=== PATIENT | female | born 1985 | race Caucasian/White ===

== ENCOUNTER 2017-07-08 08:51 | Day surgery (SDC) | payer BC ==
[~2017-07-08] VITALS: Ht 165.1 cm; Wt 71.4 kg
[~2017-07-08 08:51] MED LIST: ENDOCET 5-3251 EACH PO; IBUPROFEN800 MG PO; PRENATAL TABLE1 EAC3 PO
[2017-07-08 10:05] LABS: HEMATOCRIT 34.4 % (36.0-46.0); MCH 32.5 PG (29.0-34.0); MCHC 34.6 G/DL (30.0-36.0); MEAN PLAT.VOLUME 10.2 uM^3 (9.5-12.4); PLATELET COUNT 152 K/uL (156-360); RBC DIS.WIDTH-CV 12.7 % (11.8-14.6); RED BLOOD COUNT 3.66 M/uL (3.80-5.20); WHITE BLOOD COUNT 8.7 K/uL (4.1-10.2)
[2017-07-08 10:16] LABS: CHLORIDE 108 mEq/L (99-109); POTASSIUM 3.7 mEq/L (3.7-5.4); SODIUM 137 mEq/L (136-147)
[2017-07-08 10:18] LABS: GLUCOSE 80 mg/dL (70-99)
[2017-07-08 10:19] LABS: ANION GAP 8 MEQ/L (2-14)
[2017-07-08 10:20] LABS: TOTAL BILIRUBIN 1.4 mg/dL (0.0-1.0)
[2017-07-08 10:22] LABS: ALKALINE PHOSPHATASE 35 IU/L (3-129); GFR ESTIMATE (CALCULATED) > 59 mL/min/
[2017-07-08 10:23] LABS: UREA NITROGEN (BUN) 5 mg/dL (9-23)
[2017-07-08 10:54] LABS: ADD MIUA? NO; BILIRUBIN NEGATIVE; BLOOD NEGATIVE; COLOR YELLOW ((YELLOW)); GLUCOSE (STRIP) NEGATIVE; KETONES 5; LEUKOCYTES NEGATIVE; NITRITE NEGATIVE; PROTEIN (STRIP) NEGATIVE; SPECIFIC GRAVITY 1.008 (1.000-1.030); UCUL ADDED? NO; UROBILINOGEN 0.2 MG/DL (0.2-1.0)
[2017-07-08] MEDS ORDERED: PROBIOTIC1 EAC1 PO (12:20)
[2017-07-08] MEDS ORDERED: TYLENOL EXTRA500 MG PO (12:20)
[2017-07-08 18:15] VITALS: BP 99/57
[2017-07-08 20:30] VITALS: BP 101/68
[2017-07-08 23:17] VITALS: BP 98/52
[2017-07-09 03:06] VITALS: BP 91/51
[2017-07-09 07:00] VITALS: BP 101/57
== END 2017-07-09 09:59 | disposition home or self-care (01) ==
LOC: EME 08:51 → SDC 15:13 → EME 15:13 → ENRESERV 16:24 → 2SOUTH 16:26 → ENRESERV 16:30 → 2EAST 18:06
PROVIDERS: Nurse Practitioner Family
PROC: 0DTJ4ZZ Resection of Appendix, Percutaneous Endoscopic Approach (ICD-10-PCS; principal; 2017-07-08)
DX: O99.612 Diseases of the digestive system complicating pregnancy, second trimester (principal); K35.80 Unspecified acute appendicitis; Z3A.14 14 weeks gestation of pregnancy
CPT/HCPCS: 76705; 80053; 81003; 85027; G0378; J0131; J0330; J1100; J1170; J1650; J2270; J2405; J2543; J2765; J3010; J7030; J7050; J7120

== ENCOUNTER 2017-12-29 05:05 | Inpatient (IN) | payer BC ==
[2017-12-29] VITALS (7 sets, daily range): BP systolic 89–140; BP diastolic 52–97
[~2017-12-29] VITALS: Ht 167.6 cm; Wt 83.0 kg
[~2017-12-29 05:05] MED LIST changes: +PROBIOTIC1 EAC1 PO; +TUMS500 MG PO; +TYLENOL EXTRA500 MG PO
[2017-12-29 05:55] LABS: BASOPHIL (%) 0.4 % (0-1); EOSINOPHIL (%) 1.4 % (0-5); EOSINOPHIL COUNT 0.1 K/uL (0-0.3); HEMATOCRIT 35.2 % (36.0-46.0); HEMOGLOBIN 11.9 G/DL (11.9-15.5); IMMATURE GRANULOCYTE (%) 0.4 % (0.0-0.7); LYMPHOCYTE (%) 25.3 % (15-42); LYMPHOCYTE COUNT 2.1 K/uL (1.0-2.8); MCH 32.3 PG (29.0-34.0); MCHC 33.8 G/DL (30.0-36.0); MCV 95.7 FL (83-99); MONOCYTE (%) 10.1 % (3-12); MONOCYTE COUNT 0.8 K/uL (0-0.8); NEUTROPHIL (%) 62.4 % (45-76); NEUTROPHIL COUNT 5.2 K/uL (1.8-6.4); PLATELET COUNT 195 K/uL (156-360); RBC DIS.WIDTH-CV 13.1 % (11.8-14.6); RBC DIS.WIDTH-SD 45.8 % (39-53); RED BLOOD COUNT 3.68 M/uL (3.80-5.20); WHITE BLOOD COUNT 8.3 K/uL (4.1-10.2)
[2017-12-30 02:57] VITALS: BP 104/57
[2017-12-30 07:15] LABS: BASOPHIL (%) 0.1 % (0-1); EOSINOPHIL (%) 0.6 % (0-5); EOSINOPHIL COUNT 0.1 K/uL (0-0.3); HEMATOCRIT 25.4 % (36.0-46.0); IMMATURE GRANULOCYTE (%) 0.4 % (0.0-0.7); LYMPHOCYTE (%) 22.9 % (15-42); LYMPHOCYTE COUNT 2.2 K/uL (1.0-2.8); MCH 33.2 PG (29.0-34.0); MCHC 33.9 G/DL (30.0-36.0); MCV 98.1 FL (83-99); MONOCYTE (%) 9.4 % (3-12); MONOCYTE COUNT 0.9 K/uL (0-0.8); NEUTROPHIL (%) 66.6 % (45-76); NEUTROPHIL COUNT 6.5 K/uL (1.8-6.4); PLATELET COUNT 153 K/uL (156-360); RBC DIS.WIDTH-CV 13.2 % (11.8-14.6); RBC DIS.WIDTH-SD 47.2 % (39-53); WHITE BLOOD COUNT 9.7 K/uL (4.1-10.2)
[2017-12-30 07:25] LABS: HEMOGLOBIN 8.6 G/DL (11.9-15.5); RED BLOOD COUNT 2.59 M/uL (3.80-5.20)
[2017-12-30 07:37] VITALS: BP 101/57
[2017-12-30 15:33] VITALS: BP 105/60
[2017-12-30 19:00] VITALS: BP 106/64
[2017-12-30 23:00] VITALS: BP 96/51
[2017-12-31 03:09] VITALS: BP 91/52
[2017-12-31] MEDS ORDERED: ENDOCET 5-3251 EACH PO (10:51)
[2017-12-31] MEDS ORDERED: CHROMAGEN,1 CAPSULE PO (10:51)
[2017-12-31] MEDS ORDERED: IBUPROFEN800 MG PO (10:51)
[2017-12-31] MEDS ORDERED: BREAST PUMP MC (11:05)
== END 2017-12-31 13:41 | disposition home or self-care (01) | DRG 765 ==
LOC: 2WEST 05:05 → 2SOUTH 14:30 → 2WEST 12-31 13:41
PROVIDERS: Obstetrics & Gynecology Obstetrics
PROC: 10D00Z1 Extraction of Products of Conception, Low, Open Approach (ICD-10-PCS; principal; 2017-12-29)
DX: O32.1XX0 Maternal care for breech presentation, not applicable or unspecified (principal); O34.211 Maternal care for low transverse scar from previous cesarean delivery; O34.03 Maternal care for unspecified congenital malformation of uterus, third trimester; O34.219 Maternal care for unspecified type scar from previous cesarean delivery; O99.02 Anemia complicating childbirth; D62 Acute posthemorrhagic anemia; Z37.0 Single live birth; Z3A.39 39 weeks gestation of pregnancy; Q51.3 Bicornate uterus
CPT/HCPCS: 85025; 86850; 86900; 86901; 87641; J0690; J1100; J1170; J1885; J2250; J2274; J2405; J3010; J7120

== ENCOUNTER → 2018-01-09 | Outpatient (CLI) | payer BC ==
[~2018-01-09] MED LIST changes: +BREAST PUMP MC; +CHROMAGEN,1 CAPSULE PO
== END | disposition home or self-care (01) ==
LOC: LAC 12:22
DX: Z39.1 Encounter for care and examination of lactating mother (principal); O92.13 Cracked nipple associated with lactation; O92.79 Other disorders of lactation
CPT/HCPCS: G0463

== ENCOUNTER 2018-02-10 10:03 | Emergency (ER) | payer BC ==
[~2018-02-10] VITALS: Ht 167.6 cm; Wt 76.1 kg
[2018-02-10 11:38] LABS: HEMATOCRIT 35.4 % (36.0-46.0); HEMOGLOBIN 11.9 G/DL (11.9-15.5); MCH 31.6 PG (29.0-34.0); MCHC 33.6 G/DL (30.0-36.0); MCV 94.1 FL (83-99); PLATELET COUNT 200 K/uL (156-360); RBC DIS.WIDTH-CV 12.1 % (11.8-14.6); RBC DIS.WIDTH-SD 42.2 % (39-53); RED BLOOD COUNT 3.76 M/uL (3.80-5.20); WHITE BLOOD COUNT 4.2 K/uL (4.1-10.2)
[2018-02-10 11:54] LABS: CHLORIDE 110 mEq/L (99-109); SODIUM 142 mEq/L (136-147)
[2018-02-10 11:55] LABS: GLUCOSE 87 mg/dL (70-99)
[2018-02-10 11:59] LABS: CREATININE 0.8 mg/dL (0.6-1.3); GFR ESTIMATE (CALCULATED) > 59 mL/min/
[2018-02-10 12:00] LABS: UREA NITROGEN (BUN) 12 mg/dL (9-23)
[2018-02-10 13:17] LABS: QUANTITATIVE HCG < 4.0 MIU/ML
[2018-02-10] MEDS ORDERED: BACTRIM,SEPT1 TABLET PO (14:54)
[2018-02-10] MEDS ORDERED: BACTROBAN OINTM22 GM TP (14:54)
[2018-02-10 15:06] VITALS: BP 106/68
== END 2018-02-10 15:08 | disposition home or self-care (01) ==
LOC: EME 10:03
PROVIDERS: Nurse Practitioner Family
DX: L03.311 Cellulitis of abdominal wall (principal); Z98.890 Other specified postprocedural states; Z86.14 Personal history of Methicillin resistant Staphylococcus aureus infection; F41.9 Anxiety disorder, unspecified; Z90.49 Acquired absence of other specified parts of digestive tract
CPT/HCPCS: 74177; 80048; 84702; 85027; 87070; 87075; 87077; 87147; 87186; 87205; 99281; 99284